=== PATIENT | female | born 2005 | race Hispanic/Latino ===

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

== ENCOUNTER 2025-06-19 22:37 | Emergency (ER) | payer OTHER, MEDICAID, SELFPAY ==
[2020-04-22 19:26] VITALS: BMI 25.2
[2025-06-19 23:20] VITALS: BP 112/55; PULSE 92; RESP 16; TEMP 38.3; O2SAT 99; BMI 26.9
[2025-06-20] MEDS: ONDANSETRON 4 MG/2 ML INJ IV (00:22)
--- NOTE | 2025-06-20 00:28 | ED_ITS ---
HPI - Abdominal Pain
--- NOTE | 2025-06-20 00:28 | ED.ABDPAIN ---
HPI - Abdominal Pain General Chief Complaint: Abdominal Pain Stated Complaint: abd pain, loss of appetite Time Seen by Provider: 06/19/25 23:39 Source: patient Mode of arrival: Ambulatory History of Present Illness HPI narrative: [age] year old female with a history of an appendectomy presents with mid abdominal pain and more lower abdominal pain that has been increasing in nature over the past week. She has not had a bowel movement for 1 week. She denies any symptoms or any other symptoms. She denies any chance of . Her last menstrual period was approximately 10 days ago. Related Data Previous Rx's ?Medication ?Instructions ?Recorded acetaminophen 325 mg capsule 650 mg (2 x 325 mg) PO QID PRN 04/22/20 (Tylenol) pain #60 caps oxycodone 5 mg tablet 5 mg PO Q6H PRN pain #20 tabs 04/22/20 diphenhydramine HCl 25 mg capsule 25 mg PO Q6H #20 caps 10/13/20 (Benadryl) meclizine 25 mg chewable tablet 25 mg PO TID PRN dizziness #20 tabs 10/13/20 omeprazole 20 mg capsule,delayed 20 mg PO DAILY #14 caps 06/20/25 release polyethylene glycol 3350 17 17 g PO DAILY PRN constipation 06/20/25 gram/dose oral powder (Miralax) #119 grams Allergies Allergy/AdvReac Type Severity Reaction Status Date / Time No Known Drug Allergies Allergy Verified 06/19/25 23:20 Review of Systems Review of Systems ROS Unobtainable: All systems reviewed & are unremarkable except as noted in HPI and below Patient History Medical History Healthy child Surgical History Hx of appendectomy Social History household members: family alcohol intake: never Smoking Status: Never smoker alcohol intake frequency: holidays/special occasions only Exam Narrative Exam Narrative: General: Patient appears to be in no acute distress, acting appropriately Head: normocephalic, atraumatic, HEENT: Pupils equal round reactive, eyes tracking well, neck supple, no JVD Heart: regular rate and rhythm, no murmurs, rubs, or gallops heard Lungs: clear to auscultation, no adventitious sounds Abdomen: soft , mildly tender to palpation in lower abdominal area, nondistended, positive bowel sounds Neurological: no focal neurological signs, moving all extremities well, alert and oriented x3, Psych: good judgment ,good insight, mood is normal. Initial Vital Signs Initial Vital Signs: Vital Signs Temperature 100.9 F H 06/19/25 23:20 Pulse Rate 92 H 06/19/25 23:20 Respiratory Rate 16 06/19/25 23:20 Blood Pressure 112/55 L 06/19/25 23:20 Pulse Oximetry 99 06/19/25 23:20 Oxygen Delivery Method Room Air 06/19/25 23:20 Course Orders Ordered: ED Orders 06/19/25 23:50 Complete Blood Count AUTO DIFF Stat Comprehensive Metabolic Panel Stat Lipase Stat 06/20/25 01:12 CT abdomen pelvis w con Stat 06/20/25 02:10 US abdomen limited Stat Discontinued Medications Ketorolac Tromethamine (Ketorolac 30 Mg/Ml Vial) 15 mg IV NOW ONE Stop: 06/20/25 02:10 Last Admin: 06/20/25 02:36 Dose: 15 mg Ondansetron HCl (Ondansetron 4 Mg/2 Ml Inj) 4 mg IV NOW PRN PRN Reason: Nausea And Vomiting Last Admin: 06/20/25 00:22 Dose: 4 mg Documented By: CORI Ondansetron HCl (Ondansetron 4 Mg Odt) 4 mg PO NOW PRN PRN Reason: Nausea And Vomiting Vital Signs Vital signs: Vital Signs - 8 hr 06/19/25 23:20 06/20/25 01:35 06/20/25 02:00 Temperature 100.9 F H Pulse Rate 92 H 110 H 89 Respiratory Rate 16 22 18 Blood Pressure 112/55 L 120/66 100/51 L Pulse Oximetry 99 99 98 Oxygen Delivery Method Room Air Room Air Room Air 06/20/25 02:30 06/20/25 03:00 06/20/25 03:30 Temperature Pulse Rate 99 H 94 H 87 Respiratory Rate 18 22 14 Blood Pressure 110/61 112/67 105/63 Pulse Oximetry 99 94 97 Oxygen Delivery Method Room Air Room Air 06/20/25 04:00 Temperature Pulse Rate 80 Respiratory Rate 16 Blood Pressure 98/53 L Pulse Oximetry 97 Oxygen Delivery Method Room Air MDM - Abdominal Pain Lab Data 06/20/25 00:15 06/20/25 00:15 Labs: Lab Results 06/20/25 Range/Units 00:15 WBC 14.5 H (4.5-11.0) X10^3/uL RBC 5.28 H (4.0-5.2) X10^6/uL Hgb 13.7 (12.0-16.0) g/dL Hct 40.6 (36-46) % MCV 77.0 L (80-100) fL MCH 25.9 L (26-34) PG MCHC 33.7 (30-36) % RDW 15.4 H (11.6-14.8) % Plt Count 352 (150-400) X10^3/uL Neut % (Auto) 83.7 H (50-75) % Lymph % (Auto) 9.0 L (25-40) % [place] % (Auto) 7.0 (3-14) % Eos % (Auto) 0.1 L (2-4) % Baso % (Auto) 0.2 (0-2) % Neut # (Auto) 33440 H (9907-6276) /uL Lymph # (Auto) 1300 (3125-4876) /uL [place] # (Auto) 1000 H (0-900) /uL Eos # (Auto) 0 (0-450) /uL Baso # (Auto) 0 (0-100) /uL Sodium 138 (137-145) mmol/L Potassium 3.3 L (3.4-5.1) mmol/L Chloride 100 (98-107) mmol/L Carbon Dioxide 25 (22-32) mmol/L BUN 5 L (7-17) mg/dL Creatinine 0.58 (0.52-1.04) mg/dL Estimated GFR > 60 (>60) mL/min BUN/Creatinine Ratio 8.6 (6-22) Glucose 107 H (70-99) mg/dL Calcium 9.0 (8.4-10.2) mg/dL Total Bilirubin 0.6 (0.2-1.3) mg/dL AST 26 (14-36) IU/L ALT 15 (<35) IU/L Alkaline Phosphatase 111 (38-126) U/L Total Protein 8.7 H (6.3-8.2) g/dL Albumin 4.9 (3.5-5.0) g/dL Globulin 3.8 (1.7-4.1) g/dL Albumin/Globulin Ratio 1.3 (1.0-2.8) Lipase 26 (23-300) U/L Point of care testing: Point of Care Testing Test Results Negative Urine Dip Bedside Urine Glucose Negative Bedside Urine Bilirubin - Negative Bedside Urine Ketone +/- 5 Urine Specific [place] 1.010 Bedside Urine Occult Blood - Negative Bedside Urine pH 6.0 Bedside Urine Protein - Negative Bedside Urine Urobilinogen - Negative Bedside Urine Nitrite - Negative Bedside Urine Leukocytes - Negative Esterase Imaging Data CT scan - abdomen/pelvis: Radiologist's Impression: Mild gallbladder distension without wall thickening or gallstones. Otherwise, CT abdomen and pelvis without acute abnormalities. Recommend clinical correlation for right upper quadrant pain. Consider further evaluation with ultrasound . US - abdomen: Radiologist's Impression: Unremarkable appearance of the gallbladder. Common bile duct top normal at 6 mm MDM Narrative Medical decision making narrative: [age] year old female presents with some mid to lower abdominal pain over the past week. CT did not show a clear etiology of the pain but did mention potential distention of the gallbladder. An ultrasound also was done which showed that the gallbladder was unremarkable. Discomfort or pain more likely from constipation due to not having a bowel movement over the past week. Advised to try some MiraLax as needed. Hydrate as much as possible, continue with physical activity and follow up if symptoms persist Discharge Plan Departure Patient Disposition: Home Clinical Impression: Intermittent lower abdominal pain Constipation Qualifiers: Constipation type: unspecified constipation type Qualified Code(s): K59.00 - Constipation, unspecified Instructions: DI for Abdominal Pain-Adult, DI for Constipation Activity Restrictions/Additional Instructions: Take meds as prescribed. Can use laxatives as needed. Follow up sooner if symptoms continue to persist. Prescriptions: New polyethylene glycol 3350 [Miralax] 17 gram/dose powder 17 g PO DAILY PRN (Reason: constipation) Qty: 119 0RF omeprazole 20 mg capsule,delayed release(DR/EC) 20 mg PO DAILY Qty: 14 0RF No Action oxycodone 5 mg tablet 5 mg PO Q6H PRN (Reason: pain) Qty: 20 0RF acetaminophen [Tylenol] 325 mg capsule 650 mg PO QID PRN (Reason: pain) Qty: 60 0RF meclizine 25 mg tablet,chewable 25 mg PO TID PRN (Reason: dizziness) Qty: 20 0RF Rx Instructions: You may take 1-2 tabs every 8 hours as needed for symptom diphenhydramine HCl [Benadryl] 25 mg capsule 25 mg PO Q6H Qty: 20 0RF Stand Alone Forms: Patient Portal/API
[2025-06-20 00:31] LABS: Add Manual Diff / Slide Review NO; Hematocrit 40.6 % (36-46); Hemoglobin 13.7 g/dL (12.0-16.0); Lymphocytes Absolute Auto 1300 /uL (1100-4500); Mean Corpuscular HGB Conc 33.7 % (30-36); Mean Corpuscular Hemoglobin 25.9 PG (26-34); Mean Corpuscular Volume 77.0 fL (80-100); Platelet Count 352 X10^3/uL (150-400)
[2025-06-20 00:36] LABS: Alanine Aminotransferase 15 IU/L (<35); Albumin 4.9 g/dL (3.5-5.0); Albumin Globulin Ratio 1.3 (1.0-2.8); Alkaline Phosphatase 111 U/L (38-126); Blood Urea Nitrogen 5 mg/dL (7-17); Calcium 9.0 mg/dL (8.4-10.2); Carbon Dioxide 25 mmol/L (22-32); Chloride 100 mmol/L (98-107); Estimated Glomerular Filt Rate > 60 mL/min (>60); Globulin 3.8 g/dL (1.7-4.1); Glucose 107 mg/dL (70-99); HEMOLYSIS < 15 (0-50); Lipase 26 U/L (23-300); Potassium 3.3 mmol/L (3.4-5.1); Sodium 138 mmol/L (137-145); Total Protein 8.7 g/dL (6.3-8.2)
--- NOTE | 2025-06-20 01:12 | DI.CT.S_ITS ---
PROCEDURE: CT ABDOMEN PELVIS W CON
[2025-06-20 01:35] VITALS: BP 120/66; PULSE 110; RESP 22; O2SAT 99
[2025-06-20 02:00] VITALS: BP 100/51; PULSE 89; RESP 18; O2SAT 98
--- NOTE | 2025-06-20 02:10 | DI.US.S_ITS ---
PROCEDURE: US ABDOMEN LIMITED
[2025-06-20 02:30] VITALS: BP 110/61; PULSE 99; RESP 18; O2SAT 99
[2025-06-20] MEDS: KETOROLAC 30 MG/ML VIAL 15 MG IV (02:36)
[2025-06-20 03:00] VITALS: BP 112/67; PULSE 94; RESP 22; O2SAT 94
--- NOTE | 2025-06-20 03:25 | PC.NURSE ---
Ultrasound at bedside
[2025-06-20 03:30] VITALS: BP 105/63; PULSE 87; RESP 14; O2SAT 97
[2025-06-20 04:00] VITALS: BP 98/53; PULSE 80; RESP 16; O2SAT 97
== END 2025-06-20 04:20 | disposition home or self-care (01) ==
PROVIDERS: Emergency Provider Family Medicine
DX: R10.30 Lower abdominal pain, unspecified (principal); K59.00 Constipation, unspecified
CPT/HCPCS: 36415; 74177; 76705; 80053; 81003; 81025; 83690; 85025; 96374; 96375; 99284; J1885; J2405; Q9967